=== PATIENT | female | born 1980 | race African-American/Black ===

== ENCOUNTER 2018-01-02 05:34 | Emergency (ER) | payer OTHER ==
[~2018-01-02] VITALS: Ht 157.5 cm; Wt 103.6 kg
[~2018-01-02 05:34] MED LIST: HYDR25TA PO; INSLAN SQ; INSU100C3 SQ; INSU100V SQ; LISI10TA7 PO; METF-444 PO; SIMV20TA6 PO
[2018-01-02 05:53] LABS: GLUCOSE,POINT OF CARE 426 MG/DL (70-110)
[2018-01-02] MEDS ORDERED: AMLO-511 PO (06:15)
[2018-01-02] MEDS ORDERED: LISI-662 PO (06:15)
[2018-01-02] MEDS ORDERED: SODIUM CHLORIDE 0.9% 1,000 ML IV ONE ×2 (06:45→08:00)
[2018-01-02] MEDS ORDERED: MORPHINE SULFATE 4 MG/ML SYRINGE IVP ONE (06:45)
[2018-01-02] MEDS ORDERED: ONDANSETRON HCL 4 MG/2 ML VIAL IVP ONE (06:45)
[2018-01-02 07:00] LABS: HEMATOCRIT 33.4 % (36-46); HEMOGLOBIN 11.1 g/dL (12.0-16.0); MEAN CORPUSCULAR HEMOGLOBIN 27.6 pg (26.0-34.0); MEAN CORPUSCULAR HGB CONC 33.3 G/dL (31.0-37.0); MEAN CORPUSCULAR VOLUME 83 fL (80-100); PLATELET COUNT (AUTO) 234 K/uL (150-450); RED BLOOD CELL COUNT(AUTO) 4.02 MIL/uL (4.00-5.20); RED CELL DISTRIBUTION WIDTH 13.2 % (11.5-14.5)
[2018-01-02 07:29] LABS: ALANINE AMINOTRANSFERASE 24 U/L (12-78); ALBUMIN 2.4 g/dL (3.4-5.0); ALKALINE PHOSPHATASE 73 U/L (46-116); ANION GAP 10 mmol/L (8-16); ASPARTATE AMINOTRANSFERASE 16 U/L (15-37); BILIRUBIN,TOTAL 0.3 mg/dL (0.1-1.0); CALCIUM, TOTAL 8.6 mg/dL (8.8-10.5); CARBON DIOXIDE 23 mmol/L (22-29); CHLORIDE 100 mmol/L (98-107); CREATININE 1.23 mg/dL (0.60-1.30); GLOMERULAR FILTR. RATE CALC 59 mL/min (>60); HCG,QUANTITATIVE < 1 mIU/mL (0-6); POTASSIUM 4.1 mmol/L (3.5-5.1); SODIUM SERUM 133 mmol/L (136-145); UREA NITROGEN, BLOOD 19 mg/dL (7-18)
[2018-01-02] MEDS ORDERED: INSULIN REGULAR, HUMAN 100 UNITS/ML IVP ONE ×3 (07:30→09:30)
[2018-01-02 07:33] LABS: GLUCOSE,RANDOM 430 mg/dL (70-110)
[2018-01-02] MEDS ORDERED: ACETAMINOPHEN 500 MG TABLET PO ONE (07:45)
[2018-01-02] MEDS ORDERED: CLINDAMYCIN 900 MG/D5% WATER 50 ML IV ONE (08:15)
[2018-01-02 09:13] LABS: GLUCOSE,POINT OF CARE 309 MG/DL (70-110)
[2018-01-02 09:21] LABS: BAND NEUTROPHILS % (MANUAL) 17 % (0-5); LYMPHOCYTES % (MANUAL) 7 % (22-44); MONOCYTES % (MANUAL) 7 % (2-9); SEGMENTED NEUTROPHILS % 69 % (40-70)
[2018-01-02] MEDS ORDERED: KETOROLAC TROMETHAMINE 30 MG/ML VIAL IVP ONE (09:30)
[2018-01-02 09:48] LABS: GLUCOSE,POINT OF CARE 314 MG/DL (70-110)
[2018-01-02 09:50] VITALS: BP 134/76
[2018-01-02 10:13] LABS: GLUCOSE,POINT OF CARE 298 MG/DL (70-110)
== END 2018-01-02 11:08 | disposition home or self-care (01) ==
LOC: EMS 05:34
DX: L03.116 Cellulitis of left lower limb (principal); E11.9 Type 2 diabetes mellitus without complications; E78.00 Pure hypercholesterolemia, unspecified; I10 Essential (primary) hypertension; G43.909 Migraine, unspecified, not intractable, without status migrainosus; Z79.4 Long term (current) use of insulin; Z79.899 Other long term (current) drug therapy
CPT/HCPCS: 36415; 80053; 82948; 82962; 84702; 85025; 96365; 96375; 96376; 99285; J1815; J1885; J2270; J2405; J3490; J7030

== ENCOUNTER 2018-01-05 10:57 | Inpatient (IN) | payer OTHER ==
[~2018-01-05] VITALS: Ht 157.5 cm; Wt 113.6 kg
[~2018-01-05 10:57] MED LIST changes: +AMLO-511 PO; -HYDR25TA PO; +LISI-662 PO; -LISI10TA7 PO; -SIMV20TA6 PO
[2018-01-05 11:13] LABS: GLUCOSE,POINT OF CARE 306 MG/DL (70-110)
[2018-01-05 14:06] LABS: HEMATOCRIT 28.6 % (36-46); HEMOGLOBIN 9.5 g/dL (12.0-16.0); MEAN CORPUSCULAR HEMOGLOBIN 27.6 pg (26.0-34.0); MEAN CORPUSCULAR HGB CONC 33.2 G/dL (31.0-37.0); MEAN CORPUSCULAR VOLUME 83 fL (80-100); PLATELET COUNT (AUTO) 289 K/uL (150-450); RED BLOOD CELL COUNT(AUTO) 3.44 MIL/uL (4.00-5.20); RED CELL DISTRIBUTION WIDTH 13.8 % (11.5-14.5)
[2018-01-05 14:21] LABS: ANION GAP 7 mmol/L (8-16); CALCIUM, TOTAL 8.2 mg/dL (8.8-10.5); CARBON DIOXIDE 26 mmol/L (22-29); CHLORIDE 102 mmol/L (98-107); CREATININE 1.14 mg/dL (0.60-1.30); GLOMERULAR FILTR. RATE CALC > 60 mL/min (>60); GLUCOSE,RANDOM 259 mg/dL (70-110); POTASSIUM 4.1 mmol/L (3.5-5.1); SODIUM SERUM 135 mmol/L (136-145); UREA NITROGEN, BLOOD 23 mg/dL (7-18)
[2018-01-05 14:26] LABS: ALANINE AMINOTRANSFERASE 68 U/L (12-78); ALBUMIN 1.9 g/dL (3.4-5.0); ALKALINE PHOSPHATASE 136 U/L (46-116); ASPARTATE AMINOTRANSFERASE 51 U/L (15-37); BILIRUBIN,TOTAL 0.3 mg/dL (0.1-1.0); TOTAL PROTEIN, SERUM 7.5 g/dL (6.4-8.2)
[2018-01-05 14:39] LABS: BAND NEUTROPHILS % (MANUAL) 10 % (0-5); LYMPHOCYTES % (MANUAL) 14 % (22-44); MONOCYTES % (MANUAL) 2 % (2-9); SEGMENTED NEUTROPHILS % 74 % (40-70)
[2018-01-05] MEDS ORDERED: PIPERACILLIN/TAZO 3.375 GM/D5W 50 ML IV ONE (14:45)
[2018-01-05] MEDS ORDERED: VANCOMYCIN HCL 1 GM/D5% WATER 200 ML IV ONE (14:45)
[2018-01-05] MEDS ORDERED: HYDROCODONE/ACETAMINOPHEN 5-325 MG TABLET PO ONE (15:45)
[2018-01-05] MEDS ORDERED: MORPHINE SULFATE 2 MG/ML SYRINGE IVP ONE (15:45)
[2018-01-05] MEDS ORDERED: IOVERSOL 350 MG/ML 100 ML VIAL ONE (16:02)
[2018-01-05] MEDS ORDERED: SODIUM CHLORIDE 0.9% 200 ML ONE (16:02)
[2018-01-05] MEDS ORDERED: 0.9% SODIUM CHLORIDE 10 ML SYRINGE IVP PRN (16:15)
[2018-01-05] MEDS ORDERED: OxyCODONE HCL/ACETAMINOPHEN 5-325 MG TABLET PO PRN (16:15)
[2018-01-05] MEDS ORDERED: ONDANSETRON HCL 4 MG/2 ML VIAL IVP PRN ×2 (16:15→19:45)
[2018-01-05 16:28] LABS: HCG,QUANTITATIVE < 1 mIU/mL (0-6)
[2018-01-05 16:42] VITALS: BP 143/74
[2018-01-05] MEDS ORDERED: DEXTROSE 50%-WATER 25 GM/50 ML SYRINGE IVP PRN (19:45)
[2018-01-05] MEDS ORDERED: BISACODYL 10 MG RECTAL RECTAL SUPPOSITORY PR PRN (19:45)
[2018-01-05] MEDS ORDERED: IPRATROPIUM BROMIDE 0.5 MG/2.5 ML NEB SOLUTION NEB PRN (19:45)
[2018-01-05] MEDS ORDERED: ZOLPIDEM TARTRATE 5 MG TABLET PO PRN (19:45)
[2018-01-05] MEDS ORDERED: MORPHINE SULFATE 4 MG/ML SYRINGE IVP PRN (19:45)
[2018-01-05] MEDS ORDERED: ALBUTEROL SULFATE 2.5 MG/0.5 ML NEB SOLUTION NEB PRN (19:45)
[2018-01-05] MEDS ORDERED: MAGNESIUM HYDROXIDE SUSPENSION 30 ML UDCUP PO PRN (19:45)
[2018-01-05 19:57] VITALS: BP 164/87
[2018-01-05] MEDS ORDERED: VANCOMYCIN HCL 1 GM/D5% WATER 200 ML IV SCH (20:00)
[2018-01-05] MEDS ORDERED: SODIUM CHLORIDE 0.9% 500 ML IV ONE (20:09)
[2018-01-05] MEDS ORDERED: VANCOMYCIN HCL 500 MG in DEXTROSE 5%-WATER 100 ML IV ONE (20:15)
[2018-01-05] MEDS: PIPERACILLIN/TAZO 3.375 GM/D5W 50 ML IV SCH (20:36)
[2018-01-05] MEDS: INSULIN GLARGINE,HUM.REC.ANLOG 100 UNITS/ML SQ SCH (20:37)
[2018-01-05] MEDS: DOCUSATE SODIUM 100 MG CAPSULE PO SCH (20:37)
[2018-01-05] MEDS: HYDROCODONE/ACETAMINOPHEN 5-325 MG TABLET PO PRN (20:38)
[2018-01-05] MEDS: INSULIN LISPRO 100 UNITS/ML SQ PRN (20:40)
[2018-01-05 22:28] LABS: GLUCOMETER DEV NAME(LOC) PV 4E2; GLUCOSE,POINT OF CARE 331 MG/DL (70-110)
[2018-01-05] MEDS: HEPARIN SODIUM,PORCINE 5,000 UNITS/ML VIAL SQ SCH (23:17)
[2018-01-05 23:46] VITALS: BP 121/69
[2018-01-06] MEDS: HYDROCODONE/ACETAMINOPHEN 5-325 MG TABLET PO PRN ×3 (00:08→20:40)
[2018-01-06] MEDS: PIPERACILLIN/TAZO 3.375 GM/D5W 50 ML IV SCH ×4 (02:48→20:41)
[2018-01-06 05:04] VITALS: BP 137/79
[2018-01-06] MEDS: INSULIN LISPRO 100 UNITS/ML SQ SCH ×3 (05:49→17:49)
[2018-01-06 06:12] LABS: BASOPHILS % (AUTO) 0.5 % (0.0-2.0); HEMATOCRIT 26.4 % (36-46); LYMPHOCYTES # (AUTO) 1.5 K/uL (1.0-4.8); LYMPHOCYTES % (AUTO) 11.3 % (22.0-44.0); MEAN CORPUSCULAR HEMOGLOBIN 28.4 pg (26.0-34.0); MEAN CORPUSCULAR HGB CONC 34.2 G/dL (31.0-37.0); MEAN CORPUSCULAR VOLUME 83 fL (80-100); NEUTROPHILS % (AUTO) 80.2 % (40.0-70.0); PLATELET COUNT (AUTO) 294 K/uL (150-450); RED BLOOD CELL COUNT(AUTO) 3.19 MIL/uL (4.00-5.20); RED CELL DISTRIBUTION WIDTH 13.7 % (11.5-14.5)
[2018-01-06 06:37] LABS: ALANINE AMINOTRANSFERASE 81 U/L (12-78); ALBUMIN 1.6 g/dL (3.4-5.0); ALKALINE PHOSPHATASE 118 U/L (46-116); ANION GAP 9 mmol/L (8-16); ASPARTATE AMINOTRANSFERASE 48 U/L (15-37); BILIRUBIN,TOTAL 0.3 mg/dL (0.1-1.0); CALCIUM, TOTAL 7.8 mg/dL (8.8-10.5); CARBON DIOXIDE 25 mmol/L (22-29); CHLORIDE 101 mmol/L (98-107); CREATININE 1.11 mg/dL (0.60-1.30); GLOMERULAR FILTR. RATE CALC > 60 mL/min (>60); GLUCOSE,RANDOM 187 mg/dL (70-110); POTASSIUM 3.9 mmol/L (3.5-5.1); SODIUM SERUM 135 mmol/L (136-145); TOTAL PROTEIN, SERUM 6.6 g/dL (6.4-8.2); UREA NITROGEN, BLOOD 17 mg/dL (7-18)
[2018-01-06 07:31] VITALS: BP 135/71
[2018-01-06] MEDS ORDERED: SODIUM CHLORIDE 0.9% 1,000 ML IV ONE ×2 (07:41→09:30)
[2018-01-06] MEDS: DOCUSATE SODIUM 100 MG CAPSULE PO SCH ×2 (07:58→20:40)
[2018-01-06] MEDS: AmLODIPine BESYLATE 5 MG TABLET PO SCH (07:58)
[2018-01-06] MEDS: PANTOPRAZOLE SODIUM 40 MG/VIAL IVP SCH (07:58)
[2018-01-06] MEDS: LISINOPRIL 20 MG TABLET PO SCH (07:59)
[2018-01-06] MEDS: HEPARIN SODIUM,PORCINE 5,000 UNITS/ML VIAL SQ SCH ×3 (08:00→23:39)
[2018-01-06] MEDS ORDERED: VANCOMYCIN HCL 1.5 GM in DEXTROSE 5%-WATER 250 ML IV SCH (08:00)
[2018-01-06] MEDS: ACETAMINOPHEN 325 MG TABLET PO PRN (08:29)
[2018-01-06] MEDS: INSULIN GLARGINE,HUM.REC.ANLOG 100 UNITS/ML SQ SCH ×2 (09:00→21:07)
[2018-01-06 10:23] LABS: GLUCOMETER DEV NAME(LOC) PV 4E2; GLUCOSE,POINT OF CARE 186 MG/DL (70-110)
[2018-01-06] MEDS ORDERED: MIDAZOLAM HCL 2 MG/2 ML VIAL IVP PRN (11:30)
[2018-01-06] MEDS ORDERED: HYDROmorphone 2 MG/ML SYRINGE IVP PRN ×2 (11:30)
[2018-01-06] MEDS ORDERED: INSULIN LISPRO 100 UNITS/ML SQ SCH ×2 (11:30→17:00)
[2018-01-06] MEDS ORDERED: HYDROmorphone 2 MG/ML SYRINGE ONE (11:49)
[2018-01-06] MEDS: HYDROmorphone 2 MG/ML SYRINGE IVP PRN ×2 (11:52→12:03)
[2018-01-06 12:09] LABS: GLUCOMETER DEV NAME(LOC) PACU 2; GLUCOSE,POINT OF CARE 185 MG/DL (70-110)
[2018-01-06 12:54] VITALS: BP 159/93
[2018-01-06] MEDS: INSULIN LISPRO 100 UNITS/ML SQ PRN ×3 (13:07→21:08)
[2018-01-06] MEDS: VANCOMYCIN HCL 1 GM/D5% WATER 200 ML IV SCH ×2 (15:21→23:37)
[2018-01-06 15:23] VITALS: BP 135/85
[2018-01-06 15:23] LABS: GLUCOMETER DEV NAME(LOC) PV 4E2; GLUCOSE,POINT OF CARE 195 MG/DL (70-110)
[2018-01-06 19:48] LABS: GLUCOMETER DEV NAME(LOC) PV 4E2; GLUCOSE,POINT OF CARE 180 MG/DL (70-110)
[2018-01-06 20:12] VITALS: BP 128/84
[2018-01-06 21:53] LABS: GLUCOMETER DEV NAME(LOC) PV 4E2; GLUCOSE,POINT OF CARE 183 MG/DL (70-110)
[2018-01-06 23:52] VITALS: BP 143/79
[2018-01-07] MEDS: PIPERACILLIN/TAZO 3.375 GM/D5W 50 ML IV SCH ×4 (03:07→20:48)
[2018-01-07] MEDS: HYDROCODONE/ACETAMINOPHEN 5-325 MG TABLET PO PRN ×4 (03:31→19:51)
[2018-01-07 04:00] VITALS: BP 132/75
[2018-01-07] MEDS ORDERED: PROPOFOL 1% 20 ML VIAL IVP ONE (05:31)
[2018-01-07] MEDS ORDERED: FentaNYL CITRATE-PF 100 MCG/2 ML VIAL IVP ONE (05:31)
[2018-01-07] MEDS ORDERED: MIDAZOLAM HCL 2 MG/2 ML VIAL IVP ONE (05:31)
[2018-01-07] MEDS: INSULIN LISPRO 100 UNITS/ML SQ SCH ×3 (06:14→17:51)
[2018-01-07] MEDS: VANCOMYCIN HCL 1 GM/D5% WATER 200 ML IV SCH ×3 (06:14→23:14)
[2018-01-07 06:34] LABS: ANION GAP 6 mmol/L (8-16); CALCIUM, TOTAL 7.9 mg/dL (8.8-10.5); CARBON DIOXIDE 25 mmol/L (22-29); CHLORIDE 104 mmol/L (98-107); CREATININE 1.09 mg/dL (0.60-1.30); GLOMERULAR FILTR. RATE CALC > 60 mL/min (>60); GLUCOSE,RANDOM 243 mg/dL (70-110); POTASSIUM 4.4 mmol/L (3.5-5.1); SODIUM SERUM 135 mmol/L (136-145); UREA NITROGEN, BLOOD 14 mg/dL (7-18)
[2018-01-07 06:59] LABS: GLUCOMETER DEV NAME(LOC) PV 4E2; GLUCOSE,POINT OF CARE 234 MG/DL (70-110)
[2018-01-07 08:15] VITALS: BP 151/87
[2018-01-07] MEDS: HEPARIN SODIUM,PORCINE 5,000 UNITS/ML VIAL SQ SCH ×3 (08:18→23:14)
[2018-01-07] MEDS: DOCUSATE SODIUM 100 MG CAPSULE PO SCH ×2 (08:19→20:48)
[2018-01-07] MEDS: AmLODIPine BESYLATE 5 MG TABLET PO SCH (08:19)
[2018-01-07] MEDS: LISINOPRIL 20 MG TABLET PO SCH (08:19)
[2018-01-07] MEDS: PANTOPRAZOLE SODIUM 40 MG/VIAL IVP SCH (08:19)
[2018-01-07] MEDS: INSULIN GLARGINE,HUM.REC.ANLOG 100 UNITS/ML SQ SCH ×2 (08:20→20:48)
[2018-01-07 11:40] VITALS: BP 152/87
[2018-01-07 14:03] LABS: GLUCOMETER DEV NAME(LOC) PV 4E2; GLUCOSE,POINT OF CARE 246 MG/DL (70-110)
[2018-01-07 15:35] VITALS: BP 149/90
[2018-01-07] MEDS: MULTIVITAMINS WITH MINERALS, THERAPEUTIC TABLET PO SCH (16:06)
[2018-01-07 19:38] LABS: GLUCOMETER DEV NAME(LOC) PV 4E2; GLUCOSE,POINT OF CARE 273 MG/DL (70-110)
[2018-01-07 20:00] VITALS: BP 157/95
[2018-01-07] MEDS: INSULIN LISPRO 100 UNITS/ML SQ PRN (20:46)
[2018-01-07 22:18] LABS: GLUCOMETER DEV NAME(LOC) PV 4E2; GLUCOSE,POINT OF CARE 182 MG/DL (70-110)
[2018-01-07 23:40] VITALS: BP 151/93
[2018-01-08] MEDS: PIPERACILLIN/TAZO 3.375 GM/D5W 50 ML IV SCH ×4 (02:51→20:51)
[2018-01-08] MEDS: HYDROCODONE/ACETAMINOPHEN 5-325 MG TABLET PO PRN ×4 (02:57→20:51)
[2018-01-08 04:48] VITALS: BP 151/89
[2018-01-08] MEDS: INSULIN LISPRO 100 UNITS/ML SQ SCH ×3 (06:45→17:06)
[2018-01-08] MEDS: VANCOMYCIN HCL 1 GM/D5% WATER 200 ML IV SCH ×3 (06:45→23:00)
[2018-01-08 06:48] LABS: GLUCOMETER DEV NAME(LOC) PV 4E2; GLUCOSE,POINT OF CARE 249 MG/DL (70-110)
[2018-01-08 06:52] LABS: CALCIUM, TOTAL 8.1 mg/dL (8.8-10.5); CREATININE 1.23 mg/dL (0.60-1.30); POTASSIUM 4.4 mmol/L (3.5-5.1); VANCOMYCIN,RANDOM 20.8 mcg/mL (25.0-50.0)
[2018-01-08 06:54] LABS: HEMOGLOBIN A1C 11.9 % (4.5-6.2)
[2018-01-08 08:03] VITALS: BP 152/90
[2018-01-08] MEDS: LISINOPRIL 20 MG TABLET PO SCH (08:37)
[2018-01-08] MEDS: DOCUSATE SODIUM 100 MG CAPSULE PO SCH ×2 (08:38→20:51)
[2018-01-08] MEDS: MULTIVITAMINS WITH MINERALS, THERAPEUTIC TABLET PO SCH (08:38)
[2018-01-08] MEDS: AmLODIPine BESYLATE 5 MG TABLET PO SCH (08:38)
[2018-01-08] MEDS: HEPARIN SODIUM,PORCINE 5,000 UNITS/ML VIAL SQ SCH ×2 (08:44→16:01)
[2018-01-08] MEDS: PANTOPRAZOLE SODIUM 40 MG/VIAL IVP SCH (08:45)
[2018-01-08] MEDS: INSULIN GLARGINE,HUM.REC.ANLOG 100 UNITS/ML SQ SCH ×2 (08:45→20:53)
[2018-01-08 09:03] LABS: GLUCOMETER DEV NAME(LOC) PV 4E2; GLUCOSE,POINT OF CARE 242 MG/DL (70-110)
[2018-01-08] MEDS: INSULIN LISPRO 100 UNITS/ML SQ PRN ×3 (11:40→20:55)
[2018-01-08 11:53] LABS: GLUCOMETER DEV NAME(LOC) PV 4E2; GLUCOSE,POINT OF CARE 256 MG/DL (70-110)
[2018-01-08 12:12] VITALS: BP 132/82
[2018-01-08] MEDS ORDERED: SODIUM CL IRRIG SOLN BOTTLE 250 ML IRRIG ONE (14:27)
[2018-01-08 15:10] VITALS: BP 122/76
[2018-01-08] MEDS: ACETAMINOPHEN 325 MG TABLET PO PRN (17:08)
[2018-01-08 17:23] LABS: GLUCOMETER DEV NAME(LOC) 6N 1E; GLUCOSE,POINT OF CARE 212 MG/DL (70-110)
[2018-01-08 19:51] VITALS: BP 146/88
[2018-01-08 23:03] LABS: GLUCOMETER DEV NAME(LOC) 6N 1E; GLUCOSE,POINT OF CARE 290 MG/DL (70-110)
[2018-01-09] VITALS (7 sets, daily range): BP systolic 127–153; BP diastolic 66–94
[2018-01-09] MEDS: HEPARIN SODIUM,PORCINE 5,000 UNITS/ML VIAL SQ SCH ×3 (01:13→16:19)
[2018-01-09] MEDS: HYDROCODONE/ACETAMINOPHEN 5-325 MG TABLET PO PRN ×3 (02:51→20:26)
[2018-01-09] MEDS: PIPERACILLIN/TAZO 3.375 GM/D5W 50 ML IV SCH ×4 (02:51→20:25)
[2018-01-09] MEDS: VANCOMYCIN HCL 1 GM/D5% WATER 200 ML IV SCH ×2 (06:07→16:12)
[2018-01-09] MEDS: INSULIN LISPRO 100 UNITS/ML SQ PRN ×3 (06:10→20:37)
[2018-01-09 06:28] LABS: GLUCOMETER DEV NAME(LOC) 6N 2D; GLUCOSE,POINT OF CARE 202 MG/DL (70-110)
[2018-01-09] MEDS: LISINOPRIL 20 MG TABLET PO SCH (08:48)
[2018-01-09] MEDS: DOCUSATE SODIUM 100 MG CAPSULE PO SCH ×2 (08:48→20:25)
[2018-01-09] MEDS: AmLODIPine BESYLATE 5 MG TABLET PO SCH (08:48)
[2018-01-09] MEDS: MULTIVITAMINS WITH MINERALS, THERAPEUTIC TABLET PO SCH (08:48)
[2018-01-09] MEDS: PANTOPRAZOLE SODIUM 40 MG/VIAL IVP SCH (08:48)
[2018-01-09] MEDS: INSULIN GLARGINE,HUM.REC.ANLOG 100 UNITS/ML SQ SCH ×2 (08:50→20:40)
[2018-01-09] MEDS: INSULIN LISPRO 100 UNITS/ML SQ SCH ×3 (08:51→18:20)
[2018-01-09 13:34] LABS: ANION GAP 8 mmol/L (8-16); CALCIUM, TOTAL 8.4 mg/dL (8.8-10.5); CARBON DIOXIDE 27 mmol/L (22-29); CHLORIDE 103 mmol/L (98-107); CREATININE 1.14 mg/dL (0.60-1.30); GLOMERULAR FILTR. RATE CALC > 60 mL/min (>60); GLUCOSE,RANDOM 158 mg/dL (70-110); SODIUM SERUM 138 mmol/L (136-145); UREA NITROGEN, BLOOD 13 mg/dL (7-18)
[2018-01-09 17:38] LABS: GLUCOMETER DEV NAME(LOC) 6N 2D; GLUCOSE,POINT OF CARE 172 MG/DL (70-110)
[2018-01-09 17:38] LABS: GLUCOMETER DEV NAME(LOC) 6N 2D; GLUCOSE,POINT OF CARE 111 MG/DL (70-110)
[2018-01-09 17:39] LABS: GLUCOMETER DEV NAME(LOC) 6N 2D; GLUCOSE,POINT OF CARE 172 MG/DL (70-110)
[2018-01-09 22:28] LABS: GLUCOMETER DEV NAME(LOC) 6N 2D; GLUCOSE,POINT OF CARE 166 MG/DL (70-110)
[2018-01-10] MEDS: HEPARIN SODIUM,PORCINE 5,000 UNITS/ML VIAL SQ SCH ×3 (00:43→16:13)
[2018-01-10] MEDS ORDERED: SODIUM CHLORIDE 0.9% 500 ML IV ONE (00:47)
[2018-01-10] MEDS: VANCOMYCIN HCL 1 GM/D5% WATER 200 ML IV SCH ×2 (00:55→06:23)
[2018-01-10] MEDS: HYDROCODONE/ACETAMINOPHEN 5-325 MG TABLET PO PRN ×2 (02:19→20:54)
[2018-01-10] MEDS: PIPERACILLIN/TAZO 3.375 GM/D5W 50 ML IV SCH ×3 (02:21→15:13)
[2018-01-10 04:09] VITALS: BP 133/69
[2018-01-10 07:08] LABS: ANION GAP 9 mmol/L (8-16); CALCIUM, TOTAL 8.3 mg/dL (8.8-10.5); CARBON DIOXIDE 26 mmol/L (22-29); CHLORIDE 102 mmol/L (98-107); CREATININE 1.18 mg/dL (0.60-1.30); GLOMERULAR FILTR. RATE CALC > 60 mL/min (>60); GLUCOSE,RANDOM 178 mg/dL (70-110); POTASSIUM 4.1 mmol/L (3.5-5.1); SODIUM SERUM 137 mmol/L (136-145); UREA NITROGEN, BLOOD 17 mg/dL (7-18); VANCOMYCIN,RANDOM 22.6 mcg/mL (25.0-50.0)
[2018-01-10] MEDS: INSULIN LISPRO 100 UNITS/ML SQ PRN ×4 (07:09→20:55)
[2018-01-10 07:40] VITALS: BP 154/80
[2018-01-10 08:08] LABS: GLUCOMETER DEV NAME(LOC) 6N 1E; GLUCOSE,POINT OF CARE 167 MG/DL (70-110)
[2018-01-10] MEDS: DOCUSATE SODIUM 100 MG CAPSULE PO SCH ×2 (08:18→20:55)
[2018-01-10] MEDS: MULTIVITAMINS WITH MINERALS, THERAPEUTIC TABLET PO SCH (08:18)
[2018-01-10] MEDS: LISINOPRIL 20 MG TABLET PO SCH (08:18)
[2018-01-10] MEDS: AmLODIPine BESYLATE 5 MG TABLET PO SCH (08:18)
[2018-01-10] MEDS: PANTOPRAZOLE SODIUM 40 MG/VIAL IVP SCH (08:18)
[2018-01-10] MEDS: INSULIN GLARGINE,HUM.REC.ANLOG 100 UNITS/ML SQ SCH ×2 (08:21→20:55)
[2018-01-10] MEDS: INSULIN LISPRO 100 UNITS/ML SQ SCH ×3 (08:33→17:40)
[2018-01-10 11:36] VITALS: BP 143/81
[2018-01-10 11:58] LABS: GLUCOMETER DEV NAME(LOC) 6N 2D; GLUCOSE,POINT OF CARE 140 MG/DL (70-110)
[2018-01-10 15:20] VITALS: BP 130/73
[2018-01-10 18:49] LABS: GLUCOMETER DEV NAME(LOC) 6N 1E; GLUCOSE,POINT OF CARE 214 MG/DL (70-110)
[2018-01-10 20:07] VITALS: BP 139/69
[2018-01-10] MEDS: VANCOMYCIN HCL 1.5 GM in DEXTROSE 5%-WATER 250 ML IV SCH (20:54)
[2018-01-11] VITALS (7 sets, daily range): BP systolic 146–158; BP diastolic 70–91
[2018-01-11] MEDS: HEPARIN SODIUM,PORCINE 5,000 UNITS/ML VIAL SQ SCH ×4 (00:04→23:24)
[2018-01-11 05:52] LABS: CALCIUM, TOTAL 8.4 mg/dL (8.8-10.5); CREATININE 1.27 mg/dL (0.60-1.30); POTASSIUM 4.1 mmol/L (3.5-5.1)
[2018-01-11] MEDS: INSULIN LISPRO 100 UNITS/ML SQ PRN ×2 (06:15→20:44)
[2018-01-11] MEDS: HYDROCODONE/ACETAMINOPHEN 5-325 MG TABLET PO PRN ×2 (06:17→20:42)
[2018-01-11 06:18] LABS: GLUCOMETER DEV NAME(LOC) 6N 1E; GLUCOSE,POINT OF CARE 318 MG/DL (70-110)
[2018-01-11] MEDS: MULTIVITAMINS WITH MINERALS, THERAPEUTIC TABLET PO SCH (08:10)
[2018-01-11] MEDS: VANCOMYCIN HCL 1.5 GM in DEXTROSE 5%-WATER 250 ML IV SCH ×2 (08:10→20:43)
[2018-01-11] MEDS: DOCUSATE SODIUM 100 MG CAPSULE PO SCH ×2 (08:10→20:43)
[2018-01-11] MEDS: AmLODIPine BESYLATE 5 MG TABLET PO SCH (08:10)
[2018-01-11] MEDS: LISINOPRIL 20 MG TABLET PO SCH (08:10)
[2018-01-11] MEDS: PANTOPRAZOLE SODIUM 40 MG/VIAL IVP SCH (08:11)
[2018-01-11] MEDS: INSULIN LISPRO 100 UNITS/ML SQ SCH ×3 (08:12→17:53)
[2018-01-11 08:43] LABS: BASOPHILS % (AUTO) 0.7 % (0.0-2.0); EOSINOPHILS % (AUTO) 1.5 % (1.0-6.0); HEMATOCRIT 30.3 % (36-46); LYMPHOCYTES # (AUTO) 2.8 K/uL (1.0-4.8); LYMPHOCYTES % (AUTO) 14.3 % (22.0-44.0); MEAN CORPUSCULAR HEMOGLOBIN 27.7 pg (26.0-34.0); MEAN CORPUSCULAR VOLUME 84 fL (80-100); MONOCYTES # (AUTO) 1.2 K/uL (0.1-1.0); NEUTROPHILS % (AUTO) 77.5 % (40.0-70.0); PLATELET COUNT (AUTO) 501 K/uL (150-450); RED BLOOD CELL COUNT(AUTO) 3.61 MIL/uL (4.00-5.20)
[2018-01-11] MEDS: INSULIN GLARGINE,HUM.REC.ANLOG 100 UNITS/ML SQ SCH ×2 (08:50→20:44)
[2018-01-11 11:18] LABS: GLUCOMETER DEV NAME(LOC) 6N 2D; GLUCOSE,POINT OF CARE 225 MG/DL (70-110)
[2018-01-11 11:18] LABS: GLUCOMETER DEV NAME(LOC) 6N 2D; GLUCOSE,POINT OF CARE 249 MG/DL (70-110)
[2018-01-11 12:34] LABS: GLUCOMETER DEV NAME(LOC) 6N 2D; GLUCOSE,POINT OF CARE 298 MG/DL (70-110)
[2018-01-11] MEDS ORDERED: SODIUM CHLORIDE 0.9% IRRIG BTL 1,000 ML IRRIG ONE (16:27)
[2018-01-11 20:44] LABS: GLUCOMETER DEV NAME(LOC) 6N 2D; GLUCOSE,POINT OF CARE 274 MG/DL (70-110)
[2018-01-12 02:58] LABS: GLUCOMETER DEV NAME(LOC) 6N 1E; GLUCOSE,POINT OF CARE 216 MG/DL (70-110)
[2018-01-12 05:11] VITALS: BP 163/87
[2018-01-12] MEDS: HYDROCODONE/ACETAMINOPHEN 5-325 MG TABLET PO PRN (06:00)
[2018-01-12] MEDS: INSULIN LISPRO 100 UNITS/ML SQ PRN ×2 (06:01→20:23)
[2018-01-12 06:18] LABS: GLUCOMETER DEV NAME(LOC) 6N 1E; GLUCOSE,POINT OF CARE 184 MG/DL (70-110)
[2018-01-12 06:41] LABS: ANION GAP 9 mmol/L (8-16); CALCIUM, TOTAL 8.6 mg/dL (8.8-10.5); CARBON DIOXIDE 25 mmol/L (22-29); CHLORIDE 101 mmol/L (98-107); CREATININE 1.16 mg/dL (0.60-1.30); GLOMERULAR FILTR. RATE CALC > 60 mL/min (>60); GLUCOSE,RANDOM 216 mg/dL (70-110); SODIUM SERUM 135 mmol/L (136-145); UREA NITROGEN, BLOOD 23 mg/dL (7-18); VANCOMYCIN,RANDOM 21.5 mcg/mL (25.0-50.0)
[2018-01-12 07:09] LABS: HEMATOCRIT 29.4 % (36-46); HEMOGLOBIN 9.7 g/dL (12.0-16.0); MEAN CORPUSCULAR HEMOGLOBIN 27.6 pg (26.0-34.0); MEAN CORPUSCULAR HGB CONC 33.1 G/dL (31.0-37.0); MEAN CORPUSCULAR VOLUME 84 fL (80-100); PLATELET COUNT (AUTO) 473 K/uL (150-450); RED BLOOD CELL COUNT(AUTO) 3.52 MIL/uL (4.00-5.20); RED CELL DISTRIBUTION WIDTH 14.1 % (11.5-14.5)
[2018-01-12 07:31] LABS: BAND NEUTROPHILS % (MANUAL) 6 % (0-5); LYMPHOCYTES % (MANUAL) 16 % (22-44); METAMYELOCYTES % 2 % (0-0); MONOCYTES % (MANUAL) 9 % (2-9); MYELOCYTES % 1 % (0-0); SEGMENTED NEUTROPHILS % 66 % (40-70)
[2018-01-12 07:38] VITALS: BP 147/86
[2018-01-12] MEDS: VANCOMYCIN HCL 1.5 GM in DEXTROSE 5%-WATER 250 ML IV SCH ×2 (09:36→20:14)
[2018-01-12] MEDS: INSULIN LISPRO 100 UNITS/ML SQ SCH ×3 (09:36→17:56)
[2018-01-12] MEDS: DOCUSATE SODIUM 100 MG CAPSULE PO SCH ×2 (09:37→20:14)
[2018-01-12] MEDS: MULTIVITAMINS WITH MINERALS, THERAPEUTIC TABLET PO SCH (09:37)
[2018-01-12] MEDS: LISINOPRIL 20 MG TABLET PO SCH (09:37)
[2018-01-12] MEDS: AmLODIPine BESYLATE 5 MG TABLET PO SCH (09:37)
[2018-01-12] MEDS: PANTOPRAZOLE SODIUM 40 MG/VIAL IVP SCH (09:37)
[2018-01-12] MEDS: HEPARIN SODIUM,PORCINE 5,000 UNITS/ML VIAL SQ SCH ×3 (09:37→23:20)
[2018-01-12] MEDS: INSULIN GLARGINE,HUM.REC.ANLOG 100 UNITS/ML SQ SCH ×2 (09:38→20:24)
[2018-01-12 11:20] VITALS: BP 147/85
[2018-01-12] MEDS ORDERED: AMPICILLIN SODIUM 2 GM/NS 100 ML IV SCH (12:00)
[2018-01-12] MEDS: AMPICILLIN SODIUM/SULBACTAM NA 3 GM in SODIUM CHLORIDE 0.9% 100 ML IV SCH ×3 (12:34→23:20)
[2018-01-12 14:04] LABS: GLUCOMETER DEV NAME(LOC) 6N 2D; GLUCOSE,POINT OF CARE 289 MG/DL (70-110)
[2018-01-12 14:04] LABS: GLUCOMETER DEV NAME(LOC) 6N 2D; GLUCOSE,POINT OF CARE 213 MG/DL (70-110)
[2018-01-12 16:00] VITALS: BP 161/94
[2018-01-12 19:55] LABS: APPEARANCE,URINE CLOUDY (CLEAR); BILIRUBIN,URINE NEGATIVE (NEGATIVE); GLUCOSE, URINE (UA) 250 mg/dL (NEGATIVE); KETONES,URINE NEGATIVE (NEGATIVE); LEUKOCYTE ESTERASE ,URINE NEGATIVE (NEGATIVE); NITRATE,URINE NEGATIVE (NEGATIVE); OCCULT BLOOD,URINE TRACE (NEGATIVE); PH,URINE 5.5 (5.0-8.0); PROTEIN,URINE SEE CONFIRM (NEGATIVE); UROBILINOGEN,URINE 0.2 mg/dL (<=1.0)
[2018-01-12 20:11] LABS: BACTERIA,URINE Rare /HPF (None Seen); SQUAMOUS EPITHELIAL CELL,UR Many /LPF (None Seen); SULFOSALICYLIC ACID,URINE 3+ (Negative); WBC,URINE 0-2 /HPF (0-5)
[2018-01-12] MEDS: ACETAMINOPHEN 325 MG TABLET PO PRN (20:14)
[2018-01-12 20:29] VITALS: BP 125/66
[2018-01-12 21:13] LABS: GLUCOMETER DEV NAME(LOC) 6N 1E; GLUCOSE,POINT OF CARE 170 MG/DL (70-110)
[2018-01-12 23:02] LABS: GLUCOMETER DEV NAME(LOC) 6N 2D; GLUCOSE,POINT OF CARE 140 MG/DL (70-110)
[2018-01-13] VITALS: BP 115/79
[2018-01-13 04:00] VITALS: BP 143/83
[2018-01-13 06:19] LABS: BASOPHILS % (AUTO) 0.5 % (0.0-2.0); EOSINOPHILS % (AUTO) 1.4 % (1.0-6.0); HEMATOCRIT 31.6 % (36-46); HEMOGLOBIN 10.4 g/dL (12.0-16.0); LYMPHOCYTES # (AUTO) 2.7 K/uL (1.0-4.8); LYMPHOCYTES % (AUTO) 15.5 % (22.0-44.0); MEAN CORPUSCULAR HEMOGLOBIN 27.7 pg (26.0-34.0); MEAN CORPUSCULAR HGB CONC 32.9 G/dL (31.0-37.0); MEAN CORPUSCULAR VOLUME 84 fL (80-100); MONOCYTES # (AUTO) 0.9 K/uL (0.1-1.0); NEUTROPHILS # (AUTO) 13.4 K/uL (1.8-7.7); NEUTROPHILS % (AUTO) 77.6 % (40.0-70.0); PLATELET COUNT (AUTO) 445 K/uL (150-450); RED BLOOD CELL COUNT(AUTO) 3.75 MIL/uL (4.00-5.20); RED CELL DISTRIBUTION WIDTH 14.3 % (11.5-14.5)
[2018-01-13 06:35] LABS: ANION GAP 9 mmol/L (8-16); CALCIUM, TOTAL 8.7 mg/dL (8.8-10.5); CARBON DIOXIDE 24 mmol/L (22-29); CHLORIDE 104 mmol/L (98-107); GLOMERULAR FILTR. RATE CALC > 60 mL/min (>60); GLUCOSE,RANDOM 185 mg/dL (70-110); POTASSIUM 3.9 mmol/L (3.5-5.1); SODIUM SERUM 137 mmol/L (136-145); UREA NITROGEN, BLOOD 22 mg/dL (7-18)
[2018-01-13] MEDS: AMPICILLIN SODIUM/SULBACTAM NA 3 GM in SODIUM CHLORIDE 0.9% 100 ML IV SCH ×4 (06:50→23:56)
[2018-01-13] MEDS: INSULIN LISPRO 100 UNITS/ML SQ SCH ×3 (06:57→18:18)
[2018-01-13 07:08] LABS: GLUCOMETER DEV NAME(LOC) 6N 1E; GLUCOSE,POINT OF CARE 186 MG/DL (70-110)
[2018-01-13 08:08] VITALS: BP 151/75
[2018-01-13] MEDS: HEPARIN SODIUM,PORCINE 5,000 UNITS/ML VIAL SQ SCH ×3 (08:58→23:56)
[2018-01-13] MEDS: DOCUSATE SODIUM 100 MG CAPSULE PO SCH ×2 (08:58→20:13)
[2018-01-13] MEDS: VANCOMYCIN HCL 1.5 GM in DEXTROSE 5%-WATER 250 ML IV SCH ×2 (08:58→20:13)
[2018-01-13] MEDS: LISINOPRIL 20 MG TABLET PO SCH (08:58)
[2018-01-13] MEDS: MULTIVITAMINS WITH MINERALS, THERAPEUTIC TABLET PO SCH (08:58)
[2018-01-13] MEDS: AmLODIPine BESYLATE 10 MG TABLET PO SCH (08:58)
[2018-01-13] MEDS: PANTOPRAZOLE SODIUM 40 MG/VIAL IVP SCH (08:58)
[2018-01-13] MEDS: INSULIN GLARGINE,HUM.REC.ANLOG 100 UNITS/ML SQ SCH ×2 (08:59→20:28)
[2018-01-13 12:28] VITALS: BP 152/93
[2018-01-13] MEDS ORDERED: FLUCONAZOLE 200 MG TABLET PO ONE (14:30)
[2018-01-13] MEDS: HYDROCODONE/ACETAMINOPHEN 5-325 MG TABLET PO PRN (15:39)
[2018-01-13 16:12] VITALS: BP 148/87
[2018-01-13 17:53] LABS: GLUCOMETER DEV NAME(LOC) 6N 1E; GLUCOSE,POINT OF CARE 222 MG/DL (70-110)
[2018-01-13 20:02] VITALS: BP 140/75
[2018-01-13] MEDS: ACETAMINOPHEN 325 MG TABLET PO PRN (20:26)
[2018-01-13] MEDS: INSULIN LISPRO 100 UNITS/ML SQ PRN (20:28)
[2018-01-13 21:27] LABS: GLUCOMETER DEV NAME(LOC) 6N 2D; GLUCOSE,POINT OF CARE 214 MG/DL (70-110)
[2018-01-14] VITALS (7 sets, daily range): BP systolic 130–156; BP diastolic 73–98
[2018-01-14] MEDS: HYDROCODONE/ACETAMINOPHEN 5-325 MG TABLET PO PRN ×2 (01:31→21:34)
[2018-01-14 05:36] LABS: BASOPHILS % (AUTO) 0.5 % (0.0-2.0); EOSINOPHILS % (AUTO) 1.4 % (1.0-6.0); HEMATOCRIT 30.4 % (36-46); LYMPHOCYTES # (AUTO) 2.8 K/uL (1.0-4.8); LYMPHOCYTES % (AUTO) 16.2 % (22.0-44.0); MEAN CORPUSCULAR HEMOGLOBIN 27.7 pg (26.0-34.0); MEAN CORPUSCULAR HGB CONC 32.9 G/dL (31.0-37.0); MEAN CORPUSCULAR VOLUME 84 fL (80-100); MONOCYTES # (AUTO) 1.1 K/uL (0.1-1.0); MONOCYTES % (AUTO) 6.3 % (2.0-9.0); NEUTROPHILS # (AUTO) 13.3 K/uL (1.8-7.7); NEUTROPHILS % (AUTO) 75.6 % (40.0-70.0); PLATELET COUNT (AUTO) 432 K/uL (150-450); RED BLOOD CELL COUNT(AUTO) 3.61 MIL/uL (4.00-5.20); RED CELL DISTRIBUTION WIDTH 13.9 % (11.5-14.5)
[2018-01-14 05:45] LABS: ANION GAP 9 mmol/L (8-16); CALCIUM, TOTAL 8.2 mg/dL (8.8-10.5); CARBON DIOXIDE 25 mmol/L (22-29); CHLORIDE 103 mmol/L (98-107); CREATININE 1.12 mg/dL (0.60-1.30); GLOMERULAR FILTR. RATE CALC > 60 mL/min (>60); GLUCOSE,RANDOM 206 mg/dL (70-110); SODIUM SERUM 137 mmol/L (136-145); UREA NITROGEN, BLOOD 21 mg/dL (7-18)
[2018-01-14] MEDS: AMPICILLIN SODIUM/SULBACTAM NA 3 GM in SODIUM CHLORIDE 0.9% 100 ML IV SCH ×4 (06:20→23:48)
[2018-01-14] MEDS: INSULIN LISPRO 100 UNITS/ML SQ SCH ×3 (06:23→18:01)
[2018-01-14] MEDS: PANTOPRAZOLE SODIUM 40 MG/VIAL IVP SCH (08:51)
[2018-01-14] MEDS: VANCOMYCIN HCL 1.5 GM in DEXTROSE 5%-WATER 250 ML IV SCH ×2 (08:51→19:59)
[2018-01-14] MEDS: LISINOPRIL 20 MG TABLET PO SCH (08:51)
[2018-01-14] MEDS: HEPARIN SODIUM,PORCINE 5,000 UNITS/ML VIAL SQ SCH ×3 (08:51→23:48)
[2018-01-14] MEDS: DOCUSATE SODIUM 100 MG CAPSULE PO SCH ×2 (08:53→20:37)
[2018-01-14] MEDS: MULTIVITAMINS WITH MINERALS, THERAPEUTIC TABLET PO SCH (08:53)
[2018-01-14] MEDS: FLUCONAZOLE 200 MG TABLET PO SCH (08:53)
[2018-01-14] MEDS: AmLODIPine BESYLATE 10 MG TABLET PO SCH (08:53)
[2018-01-14] MEDS: INSULIN GLARGINE,HUM.REC.ANLOG 100 UNITS/ML SQ SCH ×2 (09:02→20:38)
[2018-01-14] MEDS: INSULIN LISPRO 100 UNITS/ML SQ PRN ×3 (12:08→21:00)
[2018-01-14 12:23] LABS: GLUCOMETER DEV NAME(LOC) 6N 2D; GLUCOSE,POINT OF CARE 191 MG/DL (70-110)
[2018-01-14 12:33] LABS: GLUCOMETER DEV NAME(LOC) 6N 1E; GLUCOSE,POINT OF CARE 205 MG/DL (70-110)
[2018-01-14 12:34] LABS: GLUCOMETER DEV NAME(LOC) 6N 1E; GLUCOSE,POINT OF CARE 246 MG/DL (70-110)
[2018-01-14 20:02] LABS: GLUCOMETER DEV NAME(LOC) 6N 2D; GLUCOSE,POINT OF CARE 226 MG/DL (70-110)
[2018-01-14 21:23] LABS: GLUCOMETER DEV NAME(LOC) 6N 2D; GLUCOSE,POINT OF CARE 196 MG/DL (70-110)
[2018-01-14] MEDS ORDERED: SODIUM CHLORIDE 0.9% 500 ML IV ONE (23:45)
[2018-01-15 04:34] VITALS: BP 136/82
[2018-01-15 05:34] LABS: BASOPHILS % (AUTO) 0.6 % (0.0-2.0); EOSINOPHILS % (AUTO) 1.6 % (1.0-6.0); HEMATOCRIT 30.2 % (36-46); LYMPHOCYTES # (AUTO) 2.6 K/uL (1.0-4.8); LYMPHOCYTES % (AUTO) 17.3 % (22.0-44.0); MEAN CORPUSCULAR HGB CONC 33.3 G/dL (31.0-37.0); MEAN CORPUSCULAR VOLUME 84 fL (80-100); MONOCYTES # (AUTO) 1.1 K/uL (0.1-1.0); MONOCYTES % (AUTO) 7.3 % (2.0-9.0); NEUTROPHILS # (AUTO) 11.2 K/uL (1.8-7.7); NEUTROPHILS % (AUTO) 73.2 % (40.0-70.0); PLATELET COUNT (AUTO) 439 K/uL (150-450); RED BLOOD CELL COUNT(AUTO) 3.58 MIL/uL (4.00-5.20); RED CELL DISTRIBUTION WIDTH 14.4 % (11.5-14.5)
[2018-01-15 05:44] LABS: CALCIUM, TOTAL 8.2 mg/dL (8.8-10.5); CREATININE 1.21 mg/dL (0.60-1.30); VANCOMYCIN,RANDOM 21.3 mcg/mL (25.0-50.0)
[2018-01-15] MEDS: AMPICILLIN SODIUM/SULBACTAM NA 3 GM in SODIUM CHLORIDE 0.9% 100 ML IV SCH ×3 (05:49→16:31)
[2018-01-15] MEDS: INSULIN LISPRO 100 UNITS/ML SQ PRN ×2 (05:54→21:30)
[2018-01-15] MEDS: INSULIN LISPRO 100 UNITS/ML SQ SCH ×3 (07:30→18:01)
[2018-01-15 07:46] VITALS: BP 124/78
[2018-01-15] MEDS: VANCOMYCIN HCL 1.5 GM in DEXTROSE 5%-WATER 250 ML IV SCH ×2 (09:05→20:00)
[2018-01-15] MEDS: FLUCONAZOLE 200 MG TABLET PO SCH (09:10)
[2018-01-15] MEDS: HEPARIN SODIUM,PORCINE 5,000 UNITS/ML VIAL SQ SCH ×2 (09:10→16:31)
[2018-01-15] MEDS: MULTIVITAMINS WITH MINERALS, THERAPEUTIC TABLET PO SCH (09:10)
[2018-01-15] MEDS: LISINOPRIL 20 MG TABLET PO SCH (09:11)
[2018-01-15] MEDS: AmLODIPine BESYLATE 10 MG TABLET PO SCH (09:11)
[2018-01-15] MEDS: PANTOPRAZOLE SODIUM 40 MG/VIAL IVP SCH (09:12)
[2018-01-15] MEDS: DOCUSATE SODIUM 100 MG CAPSULE PO SCH ×2 (09:18→21:24)
[2018-01-15] MEDS: INSULIN GLARGINE,HUM.REC.ANLOG 100 UNITS/ML SQ SCH ×2 (09:46→21:30)
[2018-01-15 11:40] VITALS: BP 135/78
[2018-01-15 14:33] LABS: GLUCOMETER DEV NAME(LOC) 6N 2D; GLUCOSE,POINT OF CARE 185 MG/DL (70-110)
[2018-01-15 14:33] LABS: GLUCOMETER DEV NAME(LOC) 6N 2D; GLUCOSE,POINT OF CARE 206 MG/DL (70-110)
[2018-01-15 15:50] VITALS: BP 138/80
[2018-01-15 20:00] VITALS: BP 142/83
[2018-01-15 20:06] LABS: GLUCOMETER DEV NAME(LOC) 6N 1E; GLUCOSE,POINT OF CARE 181 MG/DL (70-110)
[2018-01-15] MEDS: HYDROCODONE/ACETAMINOPHEN 5-325 MG TABLET PO PRN (21:24)
[2018-01-15 23:23] LABS: GLUCOMETER DEV NAME(LOC) 6N 1E; GLUCOSE,POINT OF CARE 222 MG/DL (70-110)
[2018-01-16] VITALS (7 sets, daily range): BP systolic 129–161; BP diastolic 73–92
[2018-01-16] MEDS: AMPICILLIN SODIUM/SULBACTAM NA 3 GM in SODIUM CHLORIDE 0.9% 100 ML IV SCH ×4 (00:04→17:07)
[2018-01-16] MEDS: HEPARIN SODIUM,PORCINE 5,000 UNITS/ML VIAL SQ SCH ×3 (00:04→16:51)
[2018-01-16] MEDS: INSULIN LISPRO 100 UNITS/ML SQ PRN ×4 (06:43→20:24)
[2018-01-16 07:03] LABS: GLUCOMETER DEV NAME(LOC) 6N 1E; GLUCOSE,POINT OF CARE 142 MG/DL (70-110)
[2018-01-16 07:47] LABS: BASOPHILS % (AUTO) 0.7 % (0.0-2.0); EOSINOPHILS % (AUTO) 2.1 % (1.0-6.0); HEMATOCRIT 30.9 % (36-46); HEMOGLOBIN 10.3 g/dL (12.0-16.0); LYMPHOCYTES # (AUTO) 2.2 K/uL (1.0-4.8); LYMPHOCYTES % (AUTO) 18.4 % (22.0-44.0); MEAN CORPUSCULAR HEMOGLOBIN 27.9 pg (26.0-34.0); MEAN CORPUSCULAR HGB CONC 33.5 G/dL (31.0-37.0); MEAN CORPUSCULAR VOLUME 83 fL (80-100); MONOCYTES % (AUTO) 8.3 % (2.0-9.0); NEUTROPHILS # (AUTO) 8.4 K/uL (1.8-7.7); NEUTROPHILS % (AUTO) 70.5 % (40.0-70.0); PLATELET COUNT (AUTO) 429 K/uL (150-450); RED CELL DISTRIBUTION WIDTH 14.2 % (11.5-14.5)
[2018-01-16] MEDS: INSULIN LISPRO 100 UNITS/ML SQ SCH ×3 (08:12→16:52)
[2018-01-16] MEDS: VANCOMYCIN HCL 1.5 GM in DEXTROSE 5%-WATER 250 ML IV SCH ×2 (08:12→20:22)
[2018-01-16] MEDS: PANTOPRAZOLE SODIUM 40 MG/VIAL IVP SCH (08:13)
[2018-01-16] MEDS: FLUCONAZOLE 200 MG TABLET PO SCH (08:13)
[2018-01-16] MEDS: MULTIVITAMINS WITH MINERALS, THERAPEUTIC TABLET PO SCH (08:13)
[2018-01-16] MEDS: LISINOPRIL 20 MG TABLET PO SCH (08:13)
[2018-01-16] MEDS: AmLODIPine BESYLATE 10 MG TABLET PO SCH (08:13)
[2018-01-16] MEDS: DOCUSATE SODIUM 100 MG CAPSULE PO SCH ×2 (08:13→20:21)
[2018-01-16] MEDS: INSULIN GLARGINE,HUM.REC.ANLOG 100 UNITS/ML SQ SCH ×2 (08:15→20:23)
[2018-01-16 10:40] LABS: ANION GAP 9 mmol/L (8-16); CALCIUM, TOTAL 8.4 mg/dL (8.8-10.5); CARBON DIOXIDE 24 mmol/L (22-29); CHLORIDE 107 mmol/L (98-107); CREATININE 1.19 mg/dL (0.60-1.30); GLOMERULAR FILTR. RATE CALC > 60 mL/min (>60); GLUCOSE,RANDOM 129 mg/dL (70-110); POTASSIUM 3.9 mmol/L (3.5-5.1); SODIUM SERUM 140 mmol/L (136-145); UREA NITROGEN, BLOOD 17 mg/dL (7-18)
[2018-01-16 11:53] LABS: GLUCOMETER DEV NAME(LOC) 6N 2D; GLUCOSE,POINT OF CARE 178 MG/DL (70-110)
[2018-01-16 17:42] LABS: GLUCOMETER DEV NAME(LOC) 6N 2D; GLUCOSE,POINT OF CARE 168 MG/DL (70-110)
[2018-01-16] MEDS: ACETAMINOPHEN 325 MG TABLET PO PRN (20:24)
[2018-01-16 20:55] LABS: GLUCOMETER DEV NAME(LOC) 6N 2D; GLUCOSE,POINT OF CARE 135 MG/DL (70-110)
[2018-01-16] MEDS ORDERED: SODIUM CHLORIDE 0.9% 500 ML IV ONE (23:42)
[2018-01-17] MEDS: HEPARIN SODIUM,PORCINE 5,000 UNITS/ML VIAL SQ SCH ×4 (00:21→23:41)
[2018-01-17] MEDS: AMPICILLIN SODIUM/SULBACTAM NA 3 GM in SODIUM CHLORIDE 0.9% 100 ML IV SCH ×5 (00:22→23:36)
[2018-01-17 04:13] VITALS: BP 154/83
[2018-01-17] MEDS: INSULIN LISPRO 100 UNITS/ML SQ SCH ×3 (06:00→16:55)
[2018-01-17] MEDS: INSULIN LISPRO 100 UNITS/ML SQ PRN ×3 (06:01→20:18)
[2018-01-17 07:03] LABS: CALCIUM, TOTAL 8.5 mg/dL (8.8-10.5); CREATININE 1.3 mg/dL (0.60-1.30); POTASSIUM 4.1 mmol/L (3.5-5.1)
[2018-01-17 07:20] VITALS: BP 146/65
[2018-01-17] MEDS: VANCOMYCIN HCL 1.5 GM in DEXTROSE 5%-WATER 250 ML IV SCH ×2 (08:19→19:56)
[2018-01-17] MEDS: PANTOPRAZOLE SODIUM 40 MG/VIAL IVP SCH (08:20)
[2018-01-17] MEDS: AmLODIPine BESYLATE 10 MG TABLET PO SCH (08:21)
[2018-01-17] MEDS: MULTIVITAMINS WITH MINERALS, THERAPEUTIC TABLET PO SCH (08:21)
[2018-01-17] MEDS: DOCUSATE SODIUM 100 MG CAPSULE PO SCH ×2 (08:21→19:56)
[2018-01-17] MEDS: LISINOPRIL 20 MG TABLET PO SCH (08:21)
[2018-01-17] MEDS: FLUCONAZOLE 200 MG TABLET PO SCH (08:22)
[2018-01-17] MEDS: INSULIN GLARGINE,HUM.REC.ANLOG 100 UNITS/ML SQ SCH ×2 (08:22→20:17)
[2018-01-17 10:58] LABS: BASOPHILS % (AUTO) 1.2 % (0.0-2.0); EOSINOPHILS % (AUTO) 2.2 % (1.0-6.0); HEMATOCRIT 30.5 % (36-46); HEMOGLOBIN 10.2 g/dL (12.0-16.0); LYMPHOCYTES # (AUTO) 2.1 K/uL (1.0-4.8); LYMPHOCYTES % (AUTO) 17.3 % (22.0-44.0); MEAN CORPUSCULAR HGB CONC 33.4 G/dL (31.0-37.0); MEAN CORPUSCULAR VOLUME 84 fL (80-100); MONOCYTES # (AUTO) 0.8 K/uL (0.1-1.0); MONOCYTES % (AUTO) 6.4 % (2.0-9.0); NEUTROPHILS # (AUTO) 8.7 K/uL (1.8-7.7); NEUTROPHILS % (AUTO) 72.9 % (40.0-70.0); PLATELET COUNT (AUTO) 438 K/uL (150-450); RED BLOOD CELL COUNT(AUTO) 3.64 MIL/uL (4.00-5.20); RED CELL DISTRIBUTION WIDTH 14.5 % (11.5-14.5)
[2018-01-17 11:24] LABS: GLUCOMETER DEV NAME(LOC) 6N 1E; GLUCOSE,POINT OF CARE 178 MG/DL (70-110)
[2018-01-17 11:48] LABS: GLUCOMETER DEV NAME(LOC) 6N 1E; GLUCOSE,POINT OF CARE 250 MG/DL (70-110)
[2018-01-17 12:00] VITALS: BP 151/95
[2018-01-17 15:00] VITALS: BP 127/75
[2018-01-17] MEDS: ACETAMINOPHEN 325 MG TABLET PO PRN (17:05)
[2018-01-17 19:08] LABS: GLUCOMETER DEV NAME(LOC) 6N 1E; GLUCOSE,POINT OF CARE 173 MG/DL (70-110)
[2018-01-17 20:17] VITALS: BP 140/67
[2018-01-17 21:01] LABS: GLUCOMETER DEV NAME(LOC) 6N 1E; GLUCOSE,POINT OF CARE 160 MG/DL (70-110)
[2018-01-18 00:07] VITALS: BP 134/66
[2018-01-18 04:50] VITALS: BP 128/76
[2018-01-18] MEDS: AMPICILLIN SODIUM/SULBACTAM NA 3 GM in SODIUM CHLORIDE 0.9% 100 ML IV SCH ×3 (05:36→17:04)
[2018-01-18] MEDS: INSULIN LISPRO 100 UNITS/ML SQ PRN ×3 (05:41→18:05)
[2018-01-18] MEDS: HYDROCODONE/ACETAMINOPHEN 5-325 MG TABLET PO PRN ×2 (05:46→17:10)
[2018-01-18 08:00] VITALS: BP 136/81
[2018-01-18] MEDS: VANCOMYCIN HCL 1.5 GM in DEXTROSE 5%-WATER 250 ML IV SCH ×2 (08:05→18:12)
[2018-01-18] MEDS: INSULIN LISPRO 100 UNITS/ML SQ SCH ×3 (08:17→18:05)
[2018-01-18] MEDS: HEPARIN SODIUM,PORCINE 5,000 UNITS/ML VIAL SQ SCH ×2 (08:59→17:04)
[2018-01-18] MEDS: PANTOPRAZOLE SODIUM 40 MG/VIAL IVP SCH (08:59)
[2018-01-18] MEDS: FLUCONAZOLE 200 MG TABLET PO SCH (08:59)
[2018-01-18] MEDS: DOCUSATE SODIUM 100 MG CAPSULE PO SCH (08:59)
[2018-01-18] MEDS: AmLODIPine BESYLATE 10 MG TABLET PO SCH (09:00)
[2018-01-18] MEDS: LISINOPRIL 20 MG TABLET PO SCH (09:00)
[2018-01-18] MEDS: MULTIVITAMINS WITH MINERALS, THERAPEUTIC TABLET PO SCH (09:00)
[2018-01-18] MEDS: INSULIN GLARGINE,HUM.REC.ANLOG 100 UNITS/ML SQ SCH (09:01)
[2018-01-18 12:00] VITALS: BP 144/99
[2018-01-18 12:28] LABS: GLUCOMETER DEV NAME(LOC) 6N 1E; GLUCOSE,POINT OF CARE 212 MG/DL (70-110)
[2018-01-18 12:33] LABS: GLUCOMETER DEV NAME(LOC) 6N 1E; GLUCOSE,POINT OF CARE 221 MG/DL (70-110)
[2018-01-18 12:48] LABS: GLUCOMETER DEV NAME(LOC) 6N 2D; GLUCOSE,POINT OF CARE 261 MG/DL (70-110)
[2018-01-18 14:13] LABS: ANION GAP 9 mmol/L (8-16); CALCIUM, TOTAL 8.6 mg/dL (8.8-10.5); CARBON DIOXIDE 25 mmol/L (22-29); CHLORIDE 103 mmol/L (98-107); CREATININE 1.18 mg/dL (0.60-1.30); GLOMERULAR FILTR. RATE CALC > 60 mL/min (>60); GLUCOSE,RANDOM 275 mg/dL (70-110); POTASSIUM 4.9 mmol/L (3.5-5.1); SODIUM SERUM 137 mmol/L (136-145); UREA NITROGEN, BLOOD 20 mg/dL (7-18)
[2018-01-18 16:00] VITALS: BP 131/73
[2018-01-18] MEDS ORDERED: AMPI3VIA IV (16:40)
[2018-01-18] MEDS ORDERED: DSS100 PO (16:42)
[2018-01-18] MEDS ORDERED: AMLO-512 PO (16:42)
[2018-01-18] MEDS ORDERED: FLUC200T PO (16:43)
[2018-01-18] MEDS ORDERED: HEPA500018 SQ (16:46)
[2018-01-18] MEDS ORDERED: INSLAN SQ (16:47)
[2018-01-18] MEDS ORDERED: INSU100V SQ ×2 (16:48→17:24)
[2018-01-18] MEDS ORDERED: MULT-1239 PO (16:49)
[2018-01-18] MEDS ORDERED: LISI-662 PO (16:49)
[2018-01-18] MEDS ORDERED: PANT40TA25 PO (16:50)
[2018-01-18] MEDS ORDERED: VANC1.5P11 IV (16:51)
[2018-01-18] MEDS ORDERED: ACET-784 PO (16:53)
[2018-01-18] MEDS ORDERED: BISA10S PR (16:54)
[2018-01-18 17:03] LABS: VANCOMYCIN,RANDOM 22.2 mcg/mL (25.0-50.0)
[2018-01-18] MEDS ORDERED: HYDR-4061 PO (17:21)
[2018-01-18 19:12] VITALS: BP 146/80
[2018-01-18 20:13] LABS: GLUCOMETER DEV NAME(LOC) 6N 1E; GLUCOSE,POINT OF CARE 201 MG/DL (70-110)
== END 2018-01-18 18:45 | disposition home or self-care (01) | DRG 720 ==
LOC: EMS 10:57 → 4E 15:44 → 5N 01-08 14:26 → 6N 01-08 14:27
PROVIDERS: ADMIT Hospitalist; ATTEND Hospitalist
PROC: 0JBM0ZZ Excision of Left Upper Leg Subcutaneous Tissue and Fascia, Open Approach (ICD-10-PCS; principal; 2018-01-06 10:30)
PROC: 05HY33Z Insertion of Infusion Device into Upper Vein, Percutaneous Approach (ICD-10-PCS; 2018-01-11)
PROC: B54MZZA Ultrasonography of Right Upper Extremity Veins, Guidance (ICD-10-PCS; 2018-01-11)
PROC: 05HY33Z Insertion of Infusion Device into Upper Vein, Percutaneous Approach (ICD-10-PCS; 2018-01-18)
PROC: B54NZZA Ultrasonography of Left Upper Extremity Veins, Guidance (ICD-10-PCS; 2018-01-18)
DX: A41.9 Sepsis, unspecified organism (principal); E43 Unspecified severe protein-calorie malnutrition; E11.52 Type 2 diabetes mellitus with diabetic peripheral angiopathy with gangrene; E11.65 Type 2 diabetes mellitus with hyperglycemia; D64.9 Anemia, unspecified; B37.9 Candidiasis, unspecified; L02.416 Cutaneous abscess of left lower limb; I10 Essential (primary) hypertension; B95.2 Enterococcus as the cause of diseases classified elsewhere; L03.116 Cellulitis of left lower limb; E66.01 Morbid (severe) obesity due to excess calories; E78.00 Pure hypercholesterolemia, unspecified; G43.909 Migraine, unspecified, not intractable, without status migrainosus; B96.89 Other specified bacterial agents as the cause of diseases classified elsewhere; Z79.4 Long term (current) use of insulin; Z79.899 Other long term (current) drug therapy; Z68.42 Body mass index [BMI] 45.0-49.9, adult
CPT/HCPCS: 36245; 73701; 76937; 83036; 83605; 87015; 87040; 87070; 87081; 87205; 87206; 88304; 96365; 96375; C9113; G0378; J0290; J0295; J1170; J1644; J1815; J2250; J2270; J2543; J2704; J3010; J3370; J7030; J7040; J7050; J7060

== ENCOUNTER 2021-05-04 19:37 | Emergency (ER) | payer OTHER ==
[~2021-05-04] VITALS: Ht 157.5 cm; Wt 100.0 kg
[~2021-05-04 19:37] MED LIST changes: +ACET-784 PO; +AMLO-257 PO; +AMLO-258 PO; -AMLO-511 PO; +AMPI3VIA IV; +BISA10SU11 PR; +DSS100 PO; +FLUC200T85 PO; +HEPA500018 SQ; +HYDR-4061 PO; -LISI-662 PO; +LISI-894 PO; +MULT-1239 PO; +PANT-31 PO; +VANC1.5P11 IV
[2021-05-04] MEDS ORDERED: PERTUSS(ACELL),DIPH,TET VAC/PF 0.5 ML SYRINGE IM. ONE (20:00)
[2021-05-04] MEDS ORDERED: SODIUM CHLORIDE 0.9% 250 ML IRRIG SOLUTION BOTTLE IRRIG ONE (20:00)
[2021-05-04] MEDS ORDERED: CEPHALEXIN MONOHYDRATE 500 MG CAPSULE PO ONE (20:00)
[2021-05-04] MEDS ORDERED: BACITRACIN 0.9 GM PACKET OINTMENT TP ONE (20:00)
[2021-05-04] MEDS ORDERED: ACETAMINOPHEN 500 MG TABLET PO ONE (20:00)
[2021-05-04] MEDS ORDERED: INSU100I40 SQ (20:07)
[2021-05-04 20:11] LABS: GLUCOSE,POINT OF CARE 164 MG/DL (70-110)
[2021-05-04] MEDS ORDERED: CEPH500C3 PO (23:43)
[2021-05-05 00:08] VITALS: BP 153/89
== END 2021-05-05 00:24 | disposition home or self-care (01) ==
LOC: EMS 19:43
DX: S90.811A Abrasion, right foot, initial encounter (principal); S90.812A Abrasion, left foot, initial encounter; I10 Essential (primary) hypertension; E11.9 Type 2 diabetes mellitus without complications; E78.00 Pure hypercholesterolemia, unspecified; Z79.4 Long term (current) use of insulin; Z79.899 Other long term (current) drug therapy; Y04.0XXA Assault by unarmed brawl or fight, initial encounter; Y93.89 Activity, other specified; Y92.89 Other specified places as the place of occurrence of the external cause; Y99.8 Other external cause status
CPT/HCPCS: 82962; 90471; 90715; 99283

== ENCOUNTER 2022-08-11 01:24 | Emergency (ER) | payer OTHER ==
[~2022-08-11] VITALS: Ht 162.6 cm; Wt 100.0 kg
[~2022-08-11 01:24] MED LIST changes: -ACET-784 PO; -AMLO-258 PO; -AMPI3VIA IV; -BISA10SU11 PR; +CEPH-558 PO; -DSS100 PO; -FLUC200T85 PO; -HEPA500018 SQ; -HYDR-4061 PO; -INSU100C3 SQ; +INSU100I40 SQ; -INSU100V SQ; -METF-444 PO; -MULT-1239 PO; -PANT-31 PO; -VANC1.5P11 IV
[2022-08-11] MEDS ORDERED: HYDROCODONE/ACETAMINOPHEN 5-325 MG TABLET PO ONE (02:15)
[2022-08-11 02:18] LABS: BASOPHILS % (AUTO) 0.7 % (0.0-2.0); EOSINOPHILS % (AUTO) 1.9 % (1.0-6.0); HEMATOCRIT 34.4 % (36-46); HEMOGLOBIN 11.4 g/dL (12.0-16.0); LYMPHOCYTES # (AUTO) 2.4 K/uL (1.0-4.8); LYMPHOCYTES % (AUTO) 20.2 % (22.0-44.0); MEAN CORPUSCULAR VOLUME 85 fL (80-100); MONOCYTES # (AUTO) 0.8 K/uL (0.1-1.0); MONOCYTES % (AUTO) 6.9 % (2.0-9.0); NEUTROPHILS # (AUTO) 8.4 K/uL (1.8-7.7); NEUTROPHILS % (AUTO) 70.3 % (40.0-70.0); PLATELET COUNT (AUTO) 299 K/uL (150-450); RED BLOOD CELL COUNT(AUTO) 4.06 MIL/uL (4.00-5.20); RED CELL DISTRIBUTION WIDTH 14.1 % (11.5-14.5)
[2022-08-11 02:29] LABS: CALCIUM, TOTAL 8.4 mg/dL (8.8-10.5); CREATININE 2.96 mg/dL (0.60-1.30); POTASSIUM 4.6 mmol/L (3.5-5.1)
[2022-08-11 02:35] LABS: ALBUMIN 2.8 g/dL (3.4-5.0); BILIRUBIN,TOTAL 0.2 mg/dL (0.1-1.0)
[2022-08-11 06:11] VITALS: BP 148/81
== END 2022-08-11 06:59 | disposition home or self-care (01) ==
LOC: EMS 01:24
DX: G43.909 Migraine, unspecified, not intractable, without status migrainosus (principal); E11.9 Type 2 diabetes mellitus without complications; E78.00 Pure hypercholesterolemia, unspecified; I10 Essential (primary) hypertension; Z98.890 Other specified postprocedural states
CPT/HCPCS: 80053; 85025; 99283